=== PATIENT | female | born 1995 | race Two or more races ===

== ENCOUNTER 2024-07-30 19:29 | Emergency (ER) | payer OTHER ==
[~2024-07-30] VITALS: Ht 149.9 cm; Wt 45.4 kg
[2024-07-30] MEDS ORDERED: hydrOXYzine PAMOATE 25 MG CAPSULE PO STA (22:30)
[2024-07-30] MEDS ORDERED: hydrOXYzine PAMOATE 25 MG CAPSULE PO ONE (22:41)
== END 2024-07-30 22:51 | disposition home or self-care (01) ==
LOC: ER 19:29
DX: F41.9 Anxiety disorder, unspecified (principal)